=== PATIENT | male | born 1990 | race Two or more races ===

== ENCOUNTER 2018-08-04 17:01 | Inpatient (IN) ==
[2018-08-04 19:27] LABS: ABG Base Excess 5.2 MMOL/L (-2.5-2.5); ABG Oxygen Saturation 94.7 % (95-100); ABG PCO2 50.2 MM HG (35-48); ABG PH 7.402 (7.35-7.45); ABG PO2 72.3 MM HG (80-95); ABG TCO2 27.3 MMOL/L (23-27); Allen Test Positive
[2018-08-04 20:05] LABS: PT Patient Result 11.2 SECS
[2018-08-04 20:08] LABS: Albumin 3.2 G/DL (3.4-5.0); Basophils % 0.3 % (0.0-0.8); Bilirubin,Total 1.1 MG/DL (0.2-1.0); Calcium 8.8 MG/DL (8.5-10.1); Eosinophils # 0.1 10*3/uL (0.0-0.87); Hematocrit 42.4 VOL% (42.0-52.0); Hemoglobin 12.6 GM/DL (14.0-18.0); Immature Granulocytes % 0.4 %; Immature Granulocytes Absolute 0.04 #; Lymphocytes # 2.2 10*3/uL (1.4-4.0); Lymphocytes % 20.8 % (21.2-54.2); Mean Corpuscular HGB Conc 29.7 GM/DL (32-36); Mean Corpuscular Hemoglobin 22 PG (27-34); Mean Corpuscular Volume 75.4 FL (87-102); Mean Platelet Volume 11.6 FL (9.6-12.0); Monocytes # 1.3 10*3/uL (0.11-0.8); Monocytes % 12.1 % (1.7-12.7); Neutrophils % 65.4 % (38.7-73.9); Osmolality,Calculated 273.7 MOS/KG (273-304); Platelet Count 309 T/CUMM (130-400); Red Blood Count 5.62 MC/CUMM (3.8-5.5); Red Cell Distribution Width 19.4 % (9.3-17.3); White Blood Count 10.7 T/CUMM (4-12)
[2018-08-04 20:11] LABS: Apearance,Urine CLEAR (Clear); Bilirubin,Urine Negative (Negative); Blood, Urine Negative (Negative); Glucose,Urine (UA) Negative (Negative); Ketones,Urine Negative (Negative); Mucus,Urine Occasional /LPF (Occasional); Nitrite,Urine Negative (Negative); Protein,Urine 30 MG/DL; RBC,Urine <1 /HPF (0-4); Squamous Epithelial Cell,Urine Occasional /HPF (0-10); Urine Color Yellow (Yellow); WBC,Urine 1 /HPF (0-6)
[2018-08-04] MEDS ORDERED: FUROSEMIDE 40 MG/4 ML VIAL IV STA (21:51)
[2018-08-04] MEDS ORDERED: FUROSEMIDE 40 MG/4 ML VIAL ONE (21:52)
[2018-08-04] MEDS ORDERED: DOCUSATE SODIUM 100 MG CAPSULE PO PRN (22:58)
[2018-08-04] MEDS ORDERED: ONDANSETRON 4 MG/2 ML VIAL IV PRN (22:58)
[2018-08-04] MEDS ORDERED: ACETAMINOPHEN 325 MG TABLET PO PRN (22:58)
[2018-08-04] MEDS ORDERED: ALBUTEROL 2.5 MG/3 ML NEB RESP TX PRN (23:03)
[2018-08-05] MEDS: ALBUTEROL/IPRATROPIUM 3 ML NEB RESP TX SCH ×4 (00:03→19:14)
[2018-08-05] MEDS: cefTRIAXone 1,000 MG in SYRINGE 1 EACH IV SCH ×2 (00:25→20:39)
[2018-08-05] MEDS: guaiFENesin/DM ER 600-30 MG TABLET PO SCH ×2 (00:26→08:46)
[2018-08-05] MEDS: AZITHROMYCIN INJ 500 MG in SODIUM CHLORIDE 0.9% 250 ML IV SCH ×2 (00:31→16:02)
[2018-08-05] MEDS: ENOXAPARIN 40 MG/0.4 ML SYRINGE SUBCUT SCH ×2 (00:32→20:40)
[2018-08-05 17:16] LABS: Risk Ratio 2.35
[2018-08-06] MEDS: ALBUTEROL/IPRATROPIUM 3 ML NEB RESP TX SCH ×4 (01:58→19:14)
[2018-08-06 04:38] LABS: Basophils % 0.3 % (0.0-0.8); Eosinophils # 0.2 10*3/uL (0.0-0.87); Eosinophils % 1.2 % (0.00-10.9); Hemoglobin 12.4 GM/DL (14.0-18.0); Immature Granulocytes % 0.8 %; Lymphocytes # 3.4 10*3/uL (1.4-4.0); Lymphocytes % 27.8 % (21.2-54.2); Mean Corpuscular HGB Conc 29.6 GM/DL (32-36); Mean Corpuscular Hemoglobin 23 PG (27-34); Mean Corpuscular Volume 76.9 FL (87-102); Mean Platelet Volume 11.5 FL (9.6-12.0); Monocytes # 1.5 10*3/uL (0.11-0.8); Monocytes % 12.6 % (1.7-12.7); NRBC # 0.03 10*3/uL; Neutrophils % 57.3 % (38.7-73.9); Platelet Count 308 T/CUMM (130-400); Red Blood Count 5.45 MC/CUMM (3.8-5.5); Red Cell Distribution Width 19.7 % (9.3-17.3); White Blood Count 12.2 T/CUMM (4-12)
[2018-08-06 04:40] LABS: Hematocrit 41.9 VOL% (42.0-52.0)
[2018-08-06] MEDS: AZITHROMYCIN 250 MG TABLET PO SCH (09:10)
[2018-08-06] MEDS: ENOXAPARIN 40 MG/0.4 ML SYRINGE SUBCUT SCH (20:31)
[2018-08-06] MEDS: cefTRIAXone 1,000 MG in SYRINGE 1 EACH IV SCH (20:32)
[2018-08-07] MEDS: ALBUTEROL/IPRATROPIUM 3 ML NEB RESP TX SCH ×4 (00:15→19:52)
[2018-08-07 06:35] LABS: Basophils % 0.2 % (0.0-0.8); Eosinophils # 0.3 10*3/uL (0.0-0.87); Eosinophils % 2.9 % (0.00-10.9); Hemoglobin 12.1 GM/DL (14.0-18.0); Immature Granulocytes Absolute 0.12 #; Lymphocytes # 3.1 10*3/uL (1.4-4.0); Lymphocytes % 26.4 % (21.2-54.2); Mean Corpuscular HGB Conc 29.4 GM/DL (32-36); Mean Corpuscular Hemoglobin 23 PG (27-34); Mean Platelet Volume 11.1 FL (9.6-12.0); Monocytes % 8.7 % (1.7-12.7); Neutrophils # 7.1 10*3/uL (1.4-7.4); Neutrophils % 60.8 % (38.7-73.9); Platelet Count 297 T/CUMM (130-400); Red Blood Count 5.34 MC/CUMM (3.8-5.5); Red Cell Distribution Width 19.1 % (9.3-17.3); White Blood Count 11.6 T/CUMM (4-12)
[2018-08-07 06:36] LABS: Hematocrit 41.1 VOL% (42.0-52.0)
[2018-08-07] MEDS: AZITHROMYCIN 250 MG TABLET PO SCH (10:08)
[2018-08-07] MEDS: LEVOFLOXACIN INJ 750 MG in PREMIX 1 EACH IV SCH (15:37)
[2018-08-07] MEDS: PIPERACILLIN/TAZOBACTAM 3,375 MG in SODIUM CHLORIDE 0.9% 100 ML IV SCH ×2 (17:05→23:19)
[2018-08-07] MEDS: ENOXAPARIN 40 MG/0.4 ML SYRINGE SUBCUT SCH (21:03)
[2018-08-08] MEDS: ALBUTEROL/IPRATROPIUM 3 ML NEB RESP TX SCH ×3 (00:21→13:10)
[2018-08-08 06:20] LABS: Basophils # 0.1 10*3/uL (0.0-0.2); Basophils % 0.4 % (0.0-0.8); Eosinophils # 0.5 10*3/uL (0.0-0.87); Eosinophils % 4.1 % (0.00-10.9); Immature Granulocytes % 2.1 %; Immature Granulocytes Absolute 0.24 #; Lymphocytes # 2.7 10*3/uL (1.4-4.0); Lymphocytes % 23.5 % (21.2-54.2); Mean Corpuscular HGB Conc 29.6 GM/DL (32-36); Mean Corpuscular Hemoglobin 23 PG (27-34); Mean Corpuscular Volume 77.5 FL (87-102); Monocytes % 8.5 % (1.7-12.7); NRBC # 0.03 10*3/uL; Neutrophils % 61.4 % (38.7-73.9); Platelet Count 206 T/CUMM (130-400); Red Blood Count 5.46 MC/CUMM (3.8-5.5); Red Cell Distribution Width 19.8 % (9.3-17.3); White Blood Count 11.3 T/CUMM (4-12)
[2018-08-08 06:24] LABS: Hemoglobin 12.5 GM/DL (14.0-18.0)
[2018-08-08 06:37] LABS: Band Neutrophils 1 % (0-10); Eosinophils 3 % (0-10); Lymphocytes 21 % (20-55); Segmented Neutrophils 68 % (50-85); Total Cells Counted 100
[2018-08-08 06:38] LABS: Hypochromasia 1+; Microcytosis 1+; Platelet Estimate Normal
[2018-08-08] MEDS: PIPERACILLIN/TAZOBACTAM 3,375 MG in SODIUM CHLORIDE 0.9% 100 ML IV SCH (08:48)
[2018-08-08 11:58] VITALS: BP 104/50
[2018-08-08] MEDS: LEVOFLOXACIN INJ 750 MG in PREMIX 1 EACH IV SCH (12:38)
== END 2018-08-08 15:09 | disposition home or self-care (01) | DRG 194 ==
LOC: N.ED 17:01 → SUATTDRO 21:58 → N.2E 21:58 → N.EDINP 22:21 → N.ED 23:29 → N.2E 08-06 08:38
PROVIDERS: ADMIT Internal Medicine; ATTEND Internal Medicine

== ENCOUNTER 2019-08-15 16:13 | Inpatient (IN) ==
[2019-08-15] MEDS ORDERED: FUROSEMIDE 40 MG/4 ML VIAL IV STA (16:46)
[2019-08-15] MEDS ORDERED: AZITHROMYCIN INJ 500 MG in SODIUM CHLORIDE 0.9% 250 ML IV STA (16:46)
[2019-08-15] MEDS ORDERED: methylPREDNISolone SOD SUC 125 MG/2 ML VIAL IV STA (16:46)
[2019-08-15] MEDS ORDERED: cefTRIAXone 1,000 MG in SODIUM CHLORIDE 0.9% 100 ML IV STA (16:46)
[2019-08-15] MEDS ORDERED: ONDANSETRON 4 MG/2 ML VIAL IV STA (16:46)
[2019-08-15] MEDS ORDERED: ALBUTEROL NEB SOLN 5 MG/ML 20 ML/BOTTLE CONT NEB SCH (17:00)
[2019-08-15 17:20] LABS: ABG Base Excess 7.4 MMOL/L (-2.5-2.5); ABG Oxygen Saturation 89.1 % (95-100); ABG PCO2 54.5 MM HG (35-48); ABG PH 7.403 (7.35-7.45); ABG PO2 54.3 MM HG (80-95); ABG TCO2 29.9 MMOL/L (23-27); Allen Test Positive; Pt O2 Delivery Device Room Air
[2019-08-15 18:00] LABS: Partial Thromboplastin Time 32.7 SECS (20.8-36.0)
[2019-08-15 18:10] LABS: Troponin I < 0.015 NG/ML (0.00-0.045)
[2019-08-15 18:13] LABS: Basophils % 0.3 % (0.0-0.8); Eosinophils # 0.1 10*3/uL (0.0-0.87); Eosinophils % 1.1 % (0.00-10.9); Hematocrit 45.4 VOL% (42.0-52.0); Immature Granulocytes % 1.1 %; Lymphocytes # 3.4 10*3/uL (1.4-4.0); Lymphocytes % 38.1 % (21.2-54.2); Mean Corpuscular HGB Conc 29.1 GM/DL (32-36); Mean Corpuscular Volume 74.8 FL (87-102); Monocytes % 16.7 % (1.7-12.7); Neutrophils % 42.7 % (38.7-73.9); Platelet Count 237 T/CUMM (130-400); Red Blood Count 6.07 MC/CUMM (3.8-5.5); Red Cell Distribution Width 20.4 % (9.3-17.3); White Blood Count 8.8 T/CUMM (4-12)
[2019-08-15 18:14] LABS: Alanine Aminotransferase 48 U/L (16-61); Albumin 3.2 G/DL (3.4-5.0); Alkaline Phosphatase 61 U/L (45-117); Aspartate Amino Transferase 41 U/L (0-37); Bilirubin,Total < 0.39 MG/DL (0.2-1.0); Blood Urea Nitrogen 10 MG/DL (7-18); Calcium 8.4 MG/DL (8.5-10.1); Estimated Glom Filtration Rate 240 ML/MIN; Glucose 92 MG/DL (74-106); Osmolality,Calculated 268.1 MOS/KG (273-304); Total Protein 8.1 G/DL (6.4-8.3)
[2019-08-15 18:15] LABS: Hemoglobin 13.2 GM/DL (14.0-18.0)
[2019-08-15 18:31] LABS: Anisocytosis 1+; Band Neutrophils 4 % (0-10); Eosinophils 1 % (0-10); Lymphocytes 26 % (20-55); Metamyelocytes 2 %; Microcytosis 1+; Platelet Estimate Normal; Reactive Lymphocytes Slight; Segmented Neutrophils 50 % (50-85); Total Cells Counted 100
[2019-08-15 18:42] LABS: Apearance,Urine Slightly Hazy (Clear); Bilirubin,Urine Negative (Negative); Blood, Urine Negative (Negative); Glucose,Urine (UA) Negative (Negative); Ketones,Urine Negative (Negative); Mucus,Urine Occasional /LPF (Occasional); Nitrite,Urine Negative (Negative); Protein,Urine 100 MG/DL; RBC,Urine 3 /HPF (0-4); Urine Color Amber (Yellow); Urine Specific Gravity 1.028 (1.001-1.035); WBC,Urine 1 /HPF (0-6)
[2019-08-15 18:57] LABS: Barbiturates Screen,Urine Negative (Negative); Benzodiazepines Screen,Urine Negative (Negative); Cannabinoid Screen,Urine Negative (Negative); Opiate Screen,Urine Negative (Negative); Phencyclidine Screen,Urine Negative (Negative)
[2019-08-15] MEDS ORDERED: ONDANSETRON 4 MG/2 ML VIAL IV PRN (19:51)
[2019-08-15] MEDS ORDERED: DEXTROSE 50% 25 GM/50 ML SYRINGE IV PRN (20:02)
[2019-08-15] MEDS ORDERED: MAGNESIUM SULF RIDER 4 GM in PREMIX 1 EACH IV PRN (20:02)
[2019-08-15] MEDS ORDERED: MAGNESIUM SULF RIDER 2 GM in PREMIX 1 EACH IV PRN (20:02)
[2019-08-15] MEDS ORDERED: GLUCAGON 1 MG VIAL IM PRN (20:02)
[2019-08-15 21:08] LABS: Thyroid Stimulating Hormone 0.514 uIU/ml (0.358-3.74)
[2019-08-15] MEDS: POTASSIUM CHLORIDE 20 MEQ TABLET PO PRN (23:08)
[2019-08-15] MEDS: carvediloL 3.125 MG TABLET PO SCH (23:08)
[2019-08-15] MEDS: ENOXAPARIN 40 MG/0.4 ML SYRINGE SUBCUT SCH (23:08)
[2019-08-15] MEDS: OSELTAMIVIR 75 MG CAPSULE PO SCH ×2 (23:08→23:36)
[2019-08-15] MEDS: INSULIN REGULAR 100 UNIT/ML SUBCUT SCH (23:09)
[2019-08-16] MEDS: ALBUTEROL 2.5 MG/3 ML NEB RESP TX SCH ×4 (00:56→21:23)
[2019-08-16 02:33] LABS: Immature Granulocytes % 1.7 %; Immature Granulocytes Absolute 0.11 #; Mean Corpuscular HGB Conc 27.7 GM/DL (32-36); Mean Platelet Volume 10.4 FL (9.6-12.0)
[2019-08-16 02:47] LABS: Basophils % 0.5 % (0.0-0.8); Eosinophils % 0.2 % (0.00-10.9); Lymphocytes % 14.7 % (21.2-54.2); Mean Corpuscular Volume 77.9 FL (87-102); Monocytes % 7.6 % (1.7-12.7); NRBC # 0.02 10*3/uL; Neutrophils % 75.3 % (38.7-73.9); Platelet Count 284 T/CUMM (130-400); Red Blood Count 6.16 MC/CUMM (3.8-5.5); Red Cell Distribution Width 20.9 % (9.3-17.3); White Blood Count 6.6 T/CUMM (4-12)
[2019-08-16 02:48] LABS: Hemoglobin 13.3 GM/DL (14.0-18.0)
[2019-08-16 03:08] LABS: Alanine Aminotransferase 57 U/L (16-61); Albumin 3.3 G/DL (3.4-5.0); Alkaline Phosphatase 65 U/L (45-117); Aspartate Amino Transferase 48 U/L (0-37); Bilirubin,Total < 0.39 MG/DL (0.2-1.0); Blood Urea Nitrogen 10 MG/DL (7-18); Calcium 8.3 MG/DL (8.5-10.1); Estimated Glom Filtration Rate 240 ML/MIN; Glucose 154 MG/DL (74-106); HDL Cholesterol 51 MG/DL (40-60); Risk Ratio 2.69; Total Protein 7.8 G/DL (6.4-8.3); Triglycerides 59 MG/DL (2-150); VLDL CHOLESTEROL 11.8 MG/DL
[2019-08-16 03:54] LABS: Anisocytosis 1+; Ovalocytes 1+; Platelet Estimate Normal
[2019-08-16] MEDS ORDERED: PANTOPRAZOLE 40 MG TABLET PO SCH (09:00)
[2019-08-16 09:22] LABS: ABG Base Excess 5.8 MMOL/L (-2.5-2.5); ABG HCO3 29.4 MMOL/L (20-26); ABG Oxygen Saturation 86.9 % (95-100); ABG PH 7.233 (7.35-7.45); ABG PO2 56.6 MM HG (80-95); ABG TCO2 33.8 MMOL/L (23-27); Allen Test Positive; Pt O2 Delivery Device Other
[2019-08-16 09:26] LABS: ABG PCO2 88.6 MM HG (35-48)
[2019-08-16] MEDS: carvediloL 3.125 MG TABLET PO SCH ×2 (09:56→18:30)
[2019-08-16] MEDS: INSULIN REGULAR 100 UNIT/ML SUBCUT SCH ×4 (09:57→21:45)
[2019-08-16] MEDS: ASPIRIN CHEW 81 MG TABLET PO SCH (09:57)
[2019-08-16] MEDS: OSELTAMIVIR 75 MG CAPSULE PO SCH ×2 (09:57→21:45)
[2019-08-16] MEDS: cefTRIAXone 1,000 MG in SYRINGE 1 EACH IV SCH (09:59)
[2019-08-16] MEDS: FUROSEMIDE 40 MG/4 ML VIAL IV SCH ×2 (10:04→16:15)
[2019-08-16] MEDS ORDERED: FUROSEMIDE 40 MG/4 ML VIAL IV ONE (14:20)
[2019-08-16] MEDS: AZITHROMYCIN INJ 500 MG in SODIUM CHLORIDE 0.9% 250 ML IV SCH (14:35)
[2019-08-16] MEDS: methylPREDNISolone SOD SUC 40 MG/1 ML VIAL IV SCH (16:30)
[2019-08-16 16:36] LABS: ABG Base Excess 6.9 MMOL/L (-2.5-2.5); ABG HCO3 39.8 MMOL/L (20-26); ABG Oxygen Saturation 93.1 % (95-100); ABG TCO2 43.3 MMOL/L (23-27); Pt O2 Delivery Device BIPAP
[2019-08-16 16:41] LABS: ABG PH 7.156 (7.35-7.45)
[2019-08-16 16:42] LABS: ABG PCO2 115.2 MM HG (35-48)
[2019-08-16 18:26] LABS: Calcium 8.1 MG/DL (8.5-10.1); Osmolality,Calculated 276.7 MOS/KG (273-304)
[2019-08-16] MEDS: ENOXAPARIN 40 MG/0.4 ML SYRINGE SUBCUT SCH (21:45)
[2019-08-17] MEDS ORDERED: ETOMIDATE 20 MG/10 ML VIAL IV ONE ×2 (00:03→00:09)
[2019-08-17] MEDS ORDERED: VECURONIUM 10 MG VIAL IV ONE (00:09)
[2019-08-17 01:29] LABS: ABG Base Excess 5.8 MMOL/L (-2.5-2.5); ABG HCO3 45.3 MMOL/L (20-26); ABG Oxygen Saturation 90.6 % (95-100); ABG PO2 80.4 MM HG (80-95); ABG TCO2 52.1 MMOL/L (23-27)
[2019-08-17 01:30] LABS: ABG PCO2 221.5 MM HG (35-48); ABG PH 6.929 (7.35-7.45)
[2019-08-17 01:33] LABS: ABG Base Excess 7.2 MMOL/L (-2.5-2.5); ABG HCO3 39.5 MMOL/L (20-26); ABG Oxygen Saturation 97.7 % (95-100); ABG TCO2 42.8 MMOL/L (23-27); Allen Test Positive; Pt O2 Delivery Device Ventilator
[2019-08-17 01:36] LABS: ABG PCO2 108.7 MM HG (35-48); ABG PH 7.178 (7.35-7.45)
[2019-08-17 01:43] LABS: Apearance,Urine CLEAR (Clear); Bilirubin,Urine Negative (Negative); Blood, Urine Moderate mg/dL (Negative); Glucose,Urine (UA) Negative (Negative); Hyaline Casts,Urine 3 /LPF (0-3); Ketones,Urine Negative (Negative); Mucus,Urine Occasional /LPF (Occasional); Nitrite,Urine Negative (Negative); Protein,Urine 100 MG/DL; RBC,Urine 163 /HPF (0-4); Squamous Epithelial Cell,Urine Occasional /HPF (0-10); Urine Color Yellow (Yellow); Urine Specific Gravity 1.023 (1.001-1.035); WBC,Urine 1 /HPF (0-6)
[2019-08-17] MEDS: methylPREDNISolone SOD SUC 40 MG/1 ML VIAL IV SCH ×2 (03:35→15:36)
[2019-08-17 05:45] LABS: Albumin 2.8 G/DL (3.4-5.0); Bilirubin,Total 0.9 MG/DL (0.2-1.0); Calcium 8.5 MG/DL (8.5-10.1); Osmolality,Calculated 274.8 MOS/KG (273-304); Total Protein 7.2 G/DL (6.4-8.3)
[2019-08-17 05:59] LABS: Basophils % 0.1 % (0.0-0.8); Hematocrit 45.4 VOL% (42.0-52.0); Hemoglobin 12.3 GM/DL (14.0-18.0); Immature Granulocytes % 0.8 %; Immature Granulocytes Absolute 0.06 #; Lymphocytes # 1.4 10*3/uL (1.4-4.0); Mean Corpuscular HGB Conc 27.1 GM/DL (32-36); Mean Corpuscular Volume 80.9 FL (87-102); Mean Platelet Volume 10.7 FL (9.6-12.0); Monocytes % 14.3 % (1.7-12.7); NRBC # 0.05 10*3/uL; Neutrophils % 66.8 % (38.7-73.9); Platelet Count 272 T/CUMM (130-400); Red Blood Count 5.61 MC/CUMM (3.8-5.5); Red Cell Distribution Width 20.1 % (9.3-17.3); White Blood Count 7.5 T/CUMM (4-12)
[2019-08-17 06:11] LABS: Anisocytosis 1+; Hypochromasia 1+; Microcytosis 1+; Polychromasia Slight; Target Cells Slight
[2019-08-17 06:12] LABS: Platelet Estimate Normal
[2019-08-17 06:53] LABS: ABG HCO3 34.8 MMOL/L (20-26); ABG Oxygen Saturation 99.6 % (95-100); ABG PH 7.392 (7.35-7.45); ABG TCO2 34.2 MMOL/L (23-27); Allen Test Positive; Pt O2 Delivery Device Ventilator
[2019-08-17] MEDS: ALBUTEROL 2.5 MG/3 ML NEB RESP TX SCH ×4 (07:45→20:00)
[2019-08-17] MEDS: INSULIN REGULAR 100 UNIT/ML SUBCUT SCH ×4 (08:08→20:51)
[2019-08-17] MEDS: cefTRIAXone 1,000 MG in SYRINGE 1 EACH IV SCH (08:37)
[2019-08-17] MEDS: carvediloL 3.125 MG TABLET PO SCH ×2 (08:37→18:18)
[2019-08-17] MEDS: OSELTAMIVIR 75 MG CAPSULE PO SCH ×2 (08:37→21:11)
[2019-08-17] MEDS: ASPIRIN CHEW 81 MG TABLET PO SCH (08:37)
[2019-08-17] MEDS: FUROSEMIDE 40 MG/4 ML VIAL IV SCH ×2 (08:38→15:38)
[2019-08-17] MEDS: PANTOPRAZOLE 40 MG VIAL IV SCH (08:56)
[2019-08-17] MEDS: AZITHROMYCIN INJ 500 MG in SODIUM CHLORIDE 0.9% 250 ML IV SCH (15:35)
[2019-08-17] MEDS: ENOXAPARIN 60 MG/0.6 ML SYRINGE SUBCUT SCH (15:35)
[2019-08-17] MEDS: OSELTAMIVIR 6 MG/ML 60 ML/BOTTLE PO SCH (22:20)
[2019-08-18] MEDS: ALBUTEROL 2.5 MG/3 ML NEB RESP TX SCH ×4 (01:00→20:30)
[2019-08-18] MEDS: methylPREDNISolone SOD SUC 40 MG/1 ML VIAL IV SCH ×2 (02:03→15:17)
[2019-08-18 02:50] LABS: ABG Base Excess 14.9 MMOL/L (-2.5-2.5); ABG HCO3 38.9 MMOL/L (20-26); ABG Oxygen Saturation 95.8 % (95-100); ABG PCO2 61.3 MM HG (35-48); ABG PH 7.447 (7.35-7.45); ABG PO2 75.8 MM HG (80-95); ABG TCO2 37.1 MMOL/L (23-27); Allen Test Positive; Pt O2 Delivery Device Ventilator
[2019-08-18 06:45] LABS: Albumin 2.7 G/DL (3.4-5.0); Bilirubin,Total 0.8 MG/DL (0.2-1.0); Calcium 8.8 MG/DL (8.5-10.1); Osmolality,Calculated 277.7 MOS/KG (273-304); Total Protein 7.3 G/DL (6.4-8.3)
[2019-08-18 06:57] LABS: Basophils % 0.1 % (0.0-0.8); Hematocrit 45.3 VOL% (42.0-52.0); Hemoglobin 12.7 GM/DL (14.0-18.0); Immature Granulocytes % 0.9 %; Immature Granulocytes Absolute 0.07 #; Lymphocytes # 1.3 10*3/uL (1.4-4.0); Mean Corpuscular Volume 76.8 FL (87-102); Mean Platelet Volume 10.7 FL (9.6-12.0); Monocytes % 10.7 % (1.7-12.7); NRBC # 0.03 10*3/uL; Neutrophils % 70.3 % (38.7-73.9); Platelet Count 281 T/CUMM (130-400); Red Cell Distribution Width 19.9 % (9.3-17.3); White Blood Count 7.4 T/CUMM (4-12)
[2019-08-18 07:13] LABS: Band Neutrophils 3 % (0-10); Hypochromasia 1+; Lymphocytes 17 % (20-55); Microcytosis 1+; Nucleated Red Blood Cells 1 (0-5); Segmented Neutrophils 73 % (50-85); Total Cells Counted 100
[2019-08-18 07:14] LABS: Platelet Estimate Normal
[2019-08-18] MEDS: ASPIRIN CHEW 81 MG TABLET PO SCH (08:55)
[2019-08-18] MEDS: carvediloL 3.125 MG TABLET PO SCH ×2 (08:55→18:50)
[2019-08-18] MEDS: PANTOPRAZOLE 40 MG VIAL IV SCH (08:56)
[2019-08-18] MEDS: cefTRIAXone 1,000 MG in SYRINGE 1 EACH IV SCH (08:56)
[2019-08-18] MEDS: INSULIN REGULAR 100 UNIT/ML SUBCUT SCH ×4 (09:56→20:50)
[2019-08-18] MEDS: FUROSEMIDE 40 MG/4 ML VIAL IV SCH ×2 (09:57→18:50)
[2019-08-18] MEDS: OSELTAMIVIR 75 MG CAPSULE PO SCH ×2 (09:58→21:02)
[2019-08-18] MEDS: OSELTAMIVIR 6 MG/ML 60 ML/BOTTLE PO SCH ×2 (09:59→21:02)
[2019-08-18] MEDS: ENOXAPARIN 60 MG/0.6 ML SYRINGE SUBCUT SCH (15:19)
[2019-08-18] MEDS: AZITHROMYCIN INJ 500 MG in SODIUM CHLORIDE 0.9% 250 ML IV SCH (15:19)
[2019-08-19] MEDS: ALBUTEROL 2.5 MG/3 ML NEB RESP TX SCH ×4 (00:10→20:31)
[2019-08-19] MEDS: methylPREDNISolone SOD SUC 40 MG/1 ML VIAL IV SCH ×2 (01:45→13:56)
[2019-08-19 04:49] LABS: ABG Base Excess 9.3 MMOL/L (-2.5-2.5); ABG HCO3 32.9 MMOL/L (20-26); ABG Oxygen Saturation 92.4 % (95-100); ABG PCO2 57.7 MM HG (35-48); ABG PH 7.408 (7.35-7.45); ABG TCO2 31.7 MMOL/L (23-27); Allen Test Positive; Pt O2 Delivery Device Ventilator
[2019-08-19 06:34] LABS: Calcium 8.6 MG/DL (8.5-10.1); Prealbumin 16.5 MG/DL (20-40)
[2019-08-19] MEDS: INSULIN REGULAR 100 UNIT/ML SUBCUT SCH ×4 (07:31→20:42)
[2019-08-19] MEDS: cefTRIAXone 1,000 MG in SYRINGE 1 EACH IV SCH (09:15)
[2019-08-19] MEDS: OSELTAMIVIR 6 MG/ML 60 ML/BOTTLE PO SCH ×2 (09:15→20:53)
[2019-08-19] MEDS: ASPIRIN CHEW 81 MG TABLET PO SCH (09:15)
[2019-08-19] MEDS: carvediloL 3.125 MG TABLET PO SCH ×2 (09:15→16:13)
[2019-08-19] MEDS: FUROSEMIDE 40 MG/4 ML VIAL IV SCH ×2 (09:15→16:13)
[2019-08-19] MEDS: PANTOPRAZOLE 40 MG VIAL IV SCH (09:15)
[2019-08-19] MEDS: OSELTAMIVIR 75 MG CAPSULE PO SCH ×2 (09:46→20:42)
[2019-08-19] MEDS: ENOXAPARIN 60 MG/0.6 ML SYRINGE SUBCUT SCH (13:54)
[2019-08-19] MEDS: AZITHROMYCIN INJ 500 MG in SODIUM CHLORIDE 0.9% 250 ML IV SCH (14:06)
[2019-08-20] MEDS: ALBUTEROL 2.5 MG/3 ML NEB RESP TX SCH ×4 (00:10→20:23)
[2019-08-20] MEDS: methylPREDNISolone SOD SUC 40 MG/1 ML VIAL IV SCH ×2 (02:42→14:04)
[2019-08-20 04:36] LABS: ABG Base Excess 6.1 MMOL/L (-2.5-2.5); ABG HCO3 29.7 MMOL/L (20-26); ABG Oxygen Saturation 91.1 % (95-100); ABG PCO2 56.5 MM HG (35-48); ABG PH 7.378 (7.35-7.45); ABG PO2 63.3 MM HG (80-95); ABG TCO2 28.8 MMOL/L (23-27); Allen Test Positive; Pt O2 Delivery Device Ventilator
[2019-08-20] MEDS: INSULIN REGULAR 100 UNIT/ML SUBCUT SCH ×4 (06:59→21:22)
[2019-08-20] MEDS: ASPIRIN CHEW 81 MG TABLET PO SCH (08:28)
[2019-08-20] MEDS: cefTRIAXone 1,000 MG in SYRINGE 1 EACH IV SCH (08:28)
[2019-08-20] MEDS: PANTOPRAZOLE 40 MG VIAL IV SCH (08:28)
[2019-08-20] MEDS: FUROSEMIDE 40 MG/4 ML VIAL IV SCH ×2 (08:28→16:13)
[2019-08-20] MEDS: carvediloL 3.125 MG TABLET PO SCH ×2 (08:28→16:13)
[2019-08-20] MEDS: OSELTAMIVIR 6 MG/ML 60 ML/BOTTLE PO SCH ×2 (08:37→21:18)
[2019-08-20] MEDS: MULTIVITAMIN LIQUID (CENTRUM) 60 ML BOTTLE PO SCH (09:07)
[2019-08-20 09:21] LABS: Calcium 8.7 MG/DL (8.5-10.1)
[2019-08-20 09:23] LABS: Basophils % 0.2 % (0.0-0.8); Hematocrit 45.6 VOL% (42.0-52.0); Hemoglobin 13.4 GM/DL (14.0-18.0); Immature Granulocytes % 0.9 %; Immature Granulocytes Absolute 0.08 #; Lymphocytes # 1.9 10*3/uL (1.4-4.0); Lymphocytes % 21.3 % (21.2-54.2); Mean Corpuscular HGB Conc 29.4 GM/DL (32-36); Mean Corpuscular Volume 73.8 FL (87-102); Mean Platelet Volume 10.6 FL (9.6-12.0); Monocytes % 11.2 % (1.7-12.7); Neutrophils % 66.4 % (38.7-73.9); Platelet Count 291 T/CUMM (130-400); Red Blood Count 6.18 MC/CUMM (3.8-5.5); Red Cell Distribution Width 20.1 % (9.3-17.3); White Blood Count 9.1 T/CUMM (4-12)
[2019-08-20 09:28] LABS: Band Neutrophils 9 % (0-10); Giant Platelets Few; Lymphocytes 17 % (20-55); Platelet Estimate Normal; Segmented Neutrophils 68 % (50-85); Smudge Cells Few; Total Cells Counted 100
[2019-08-20 09:29] LABS: Anisocytosis 1+
[2019-08-20] MEDS: POTASSIUM CHLORIDE 20 MEQ TABLET PO PRN (12:12)
[2019-08-20] MEDS: AZITHROMYCIN INJ 500 MG in SODIUM CHLORIDE 0.9% 250 ML IV SCH (14:05)
[2019-08-20] MEDS: ENOXAPARIN 60 MG/0.6 ML SYRINGE SUBCUT SCH (14:06)
[2019-08-21] MEDS: fentaNYL INJ 1,250 MCG in SODIUM CHLORIDE 0.9% 225 ML IV PRN ×5 (00:34→20:53)
[2019-08-21] MEDS: MIDAZOLAM 100 MG in SODIUM CHLORIDE 0.9% 80 ML IV PRN ×2 (00:36→17:50)
[2019-08-21] MEDS: ALBUTEROL 2.5 MG/3 ML NEB RESP TX SCH ×4 (01:14→19:55)
[2019-08-21] MEDS: methylPREDNISolone SOD SUC 40 MG/1 ML VIAL IV SCH ×2 (03:12→14:55)
[2019-08-21 04:19] LABS: Allen Test Positive; Pt O2 Delivery Device Ventilator
[2019-08-21 04:22] LABS: ABG HCO3 32.8 MMOL/L (20-26); ABG Oxygen Saturation 94.4 % (95-100); ABG PCO2 62.6 MM HG (35-48); ABG PH 7.337 (7.35-7.45); ABG PO2 77.2 MM HG (80-95); ABG TCO2 34.7 MMOL/L (23-27)
[2019-08-21 05:08] LABS: Basophils % 0.2 % (0.0-0.8); Eosinophils % 0.1 % (0.00-10.9); Immature Granulocytes % 0.8 %; Immature Granulocytes Absolute 0.11 #; Lymphocytes # 2.2 10*3/uL (1.4-4.0); Lymphocytes % 16.8 % (21.2-54.2); Mean Corpuscular HGB Conc 28.3 GM/DL (32-36); Mean Corpuscular Volume 76.2 FL (87-102); Mean Platelet Volume 10.3 FL (9.6-12.0); Monocytes % 11.7 % (1.7-12.7); Neutrophils % 70.4 % (38.7-73.9); Platelet Count 242 T/CUMM (130-400); White Blood Count 13.4 T/CUMM (4-12)
[2019-08-21 05:31] LABS: Calcium 8.7 MG/DL (8.5-10.1)
[2019-08-21 05:44] LABS: Hematocrit 48.1 VOL% (42.0-52.0); Hemoglobin 14.1 GM/DL (14.0-18.0)
[2019-08-21 05:49] LABS: Hypochromasia 1+; Platelet Estimate Adequate
[2019-08-21] MEDS: carvediloL 3.125 MG TABLET PO SCH ×2 (08:01→16:04)
[2019-08-21] MEDS: POTASSIUM CHLORIDE 20 MEQ TABLET PO PRN (08:01)
[2019-08-21] MEDS: INSULIN REGULAR 100 UNIT/ML SUBCUT SCH ×3 (08:02→17:24)
[2019-08-21] MEDS: ASPIRIN CHEW 81 MG TABLET PO SCH (08:02)
[2019-08-21] MEDS: cefTRIAXone 1,000 MG in SYRINGE 1 EACH IV SCH (08:02)
[2019-08-21] MEDS: PANTOPRAZOLE 40 MG VIAL IV SCH (08:02)
[2019-08-21] MEDS: FUROSEMIDE 40 MG/4 ML VIAL IV SCH ×2 (08:02→15:54)
[2019-08-21] MEDS: OSELTAMIVIR 6 MG/ML 60 ML/BOTTLE PO SCH (08:04)
[2019-08-21] MEDS: MULTIVITAMIN LIQUID (CENTRUM) 60 ML BOTTLE PO SCH (08:04)
[2019-08-21] MEDS: ENOXAPARIN 60 MG/0.6 ML SYRINGE SUBCUT SCH (14:55)
[2019-08-22] MEDS: ALBUTEROL 2.5 MG/3 ML NEB RESP TX SCH ×4 (00:24→20:04)
[2019-08-22] MEDS: INSULIN REGULAR 100 UNIT/ML SUBCUT SCH ×4 (01:12→19:04)
[2019-08-22] MEDS: methylPREDNISolone SOD SUC 40 MG/1 ML VIAL IV SCH ×2 (01:52→15:29)
[2019-08-22] MEDS: fentaNYL INJ 1,250 MCG in SODIUM CHLORIDE 0.9% 225 ML IV PRN ×4 (02:17→22:51)
[2019-08-22] MEDS: MIDAZOLAM 100 MG in SODIUM CHLORIDE 0.9% 80 ML IV PRN ×4 (02:18→22:30)
[2019-08-22 04:36] LABS: ABG Base Excess 6.1 MMOL/L (-2.5-2.5); ABG HCO3 29.6 MMOL/L (20-26); ABG Oxygen Saturation 86.3 % (95-100); ABG PCO2 58.9 MM HG (35-48); ABG PH 7.366 (7.35-7.45); ABG TCO2 29.2 MMOL/L (23-27); Allen Test Positive; Pt O2 Delivery Device Ventilator
[2019-08-22 04:44] LABS: Basophils % 0.2 % (0.0-0.8); Eosinophils % 0.2 % (0.00-10.9); Immature Granulocytes % 0.9 %; Immature Granulocytes Absolute 0.15 #; Lymphocytes # 1.6 10*3/uL (1.4-4.0); Lymphocytes % 9.7 % (21.2-54.2); Mean Corpuscular HGB Conc 28.3 GM/DL (32-36); Mean Platelet Volume 10.4 FL (9.6-12.0); Monocytes % 9.7 % (1.7-12.7); Neutrophils % 79.3 % (38.7-73.9); Platelet Count 247 T/CUMM (130-400); Red Blood Count 6.41 MC/CUMM (3.8-5.5); Red Cell Distribution Width 20.1 % (9.3-17.3); White Blood Count 16.5 T/CUMM (4-12)
[2019-08-22 05:26] LABS: Hematocrit 47.1 VOL% (42.0-52.0); Hemoglobin 13.9 GM/DL (14.0-18.0)
[2019-08-22] MEDS: ASPIRIN CHEW 81 MG TABLET PO SCH (09:09)
[2019-08-22] MEDS: carvediloL 3.125 MG TABLET PO SCH ×2 (09:09→18:16)
[2019-08-22] MEDS: MULTIVITAMIN LIQUID (CENTRUM) 60 ML BOTTLE PO SCH (09:10)
[2019-08-22] MEDS: FUROSEMIDE 40 MG/4 ML VIAL IV SCH ×2 (09:14→15:53)
[2019-08-22] MEDS: cefTRIAXone 1,000 MG in SYRINGE 1 EACH IV SCH (09:16)
[2019-08-22] MEDS: PANTOPRAZOLE 40 MG VIAL IV SCH (09:17)
[2019-08-22] MEDS: ENOXAPARIN 60 MG/0.6 ML SYRINGE SUBCUT SCH (15:28)
[2019-08-23] MEDS: INSULIN REGULAR 100 UNIT/ML SUBCUT SCH ×4 (00:10→18:54)
[2019-08-23] MEDS: methylPREDNISolone SOD SUC 40 MG/1 ML VIAL IV SCH ×2 (01:35→15:02)
[2019-08-23] MEDS: ALBUTEROL 2.5 MG/3 ML NEB RESP TX SCH ×4 (01:47→19:15)
[2019-08-23 04:11] LABS: ABG Base Excess 2.9 MMOL/L (-2.5-2.5); ABG HCO3 29.1 MMOL/L (20-26); ABG Oxygen Saturation 91.1 % (95-100); ABG PCO2 51.3 MM HG (35-48); ABG PH 7.372 (7.35-7.45); ABG TCO2 30.7 MMOL/L (23-27); Allen Test Positive; Pt O2 Delivery Device Ventilator
[2019-08-23] MEDS: fentaNYL INJ 1,250 MCG in SODIUM CHLORIDE 0.9% 225 ML IV PRN ×4 (04:23→19:39)
[2019-08-23 05:29] LABS: Basophils % 0.2 % (0.0-0.8); Eosinophils % 0.1 % (0.00-10.9); Hematocrit 44.8 VOL% (42.0-52.0); Immature Granulocytes % 1.2 %; Immature Granulocytes Absolute 0.23 #; Lymphocytes % 5.3 % (21.2-54.2); Mean Corpuscular Volume 74.8 FL (87-102); Neutrophils % 85.2 % (38.7-73.9); Platelet Count 213 T/CUMM (130-400); Red Blood Count 5.99 MC/CUMM (3.8-5.5); Red Cell Distribution Width 19.8 % (9.3-17.3); White Blood Count 19.2 T/CUMM (4-12)
[2019-08-23 05:55] LABS: Hypochromasia 1+; Platelet Estimate Adequate
[2019-08-23] MEDS: MIDAZOLAM 100 MG in SODIUM CHLORIDE 0.9% 80 ML IV PRN ×3 (05:58→18:11)
[2019-08-23] MEDS: PANTOPRAZOLE 40 MG VIAL IV SCH (09:34)
[2019-08-23] MEDS: FUROSEMIDE 40 MG/4 ML VIAL IV SCH ×2 (09:34→17:13)
[2019-08-23] MEDS: ASPIRIN CHEW 81 MG TABLET PO SCH (09:35)
[2019-08-23] MEDS: carvediloL 3.125 MG TABLET PO SCH ×2 (09:35→17:14)
[2019-08-23] MEDS: cefTRIAXone 1,000 MG in SYRINGE 1 EACH IV SCH (09:35)
[2019-08-23] MEDS: MULTIVITAMIN LIQUID (CENTRUM) 60 ML BOTTLE PO SCH (09:35)
[2019-08-23 10:54] LABS: Albumin 2.7 G/DL (3.4-5.0); Bilirubin,Total 1.2 MG/DL (0.2-1.0); Osmolality,Calculated 287.3 MOS/KG (273-304); Total Protein 8.2 G/DL (6.4-8.3)
[2019-08-23] MEDS: ENOXAPARIN 60 MG/0.6 ML SYRINGE SUBCUT SCH (15:02)
[2019-08-24] MEDS: fentaNYL INJ 1,250 MCG in SODIUM CHLORIDE 0.9% 225 ML IV PRN ×2 (00:23→06:05)
[2019-08-24] MEDS: MIDAZOLAM 100 MG in SODIUM CHLORIDE 0.9% 80 ML IV PRN ×4 (00:24→20:21)
[2019-08-24] MEDS: ALBUTEROL 2.5 MG/3 ML NEB RESP TX SCH ×4 (00:45→20:15)
[2019-08-24] MEDS: INSULIN REGULAR 100 UNIT/ML SUBCUT SCH ×4 (00:56→17:07)
[2019-08-24] MEDS: methylPREDNISolone SOD SUC 40 MG/1 ML VIAL IV SCH ×2 (03:00→15:16)
[2019-08-24 05:20] LABS: ABG Base Excess 5.7 MMOL/L (-2.5-2.5); ABG HCO3 29.3 MMOL/L (20-26); ABG Oxygen Saturation 86.1 % (95-100); ABG PCO2 62.4 MM HG (35-48); ABG PH 7.341 (7.35-7.45); ABG PO2 53.1 MM HG (80-95); ABG TCO2 29.8 MMOL/L (23-27)
[2019-08-24 06:28] LABS: Basophils % 0.2 % (0.0-0.8); Hemoglobin 12.7 GM/DL (14.0-18.0); Immature Granulocytes % 1.1 %; Immature Granulocytes Absolute 0.19 #; Lymphocytes % 5.7 % (21.2-54.2); Mean Corpuscular HGB Conc 28.9 GM/DL (32-36); Mean Corpuscular Volume 75.5 FL (87-102); Monocytes % 8.8 % (1.7-12.7); Neutrophils % 84.2 % (38.7-73.9); Platelet Count 201 T/CUMM (130-400); Red Blood Count 5.83 MC/CUMM (3.8-5.5); Red Cell Distribution Width 19.9 % (9.3-17.3); White Blood Count 17.1 T/CUMM (4-12)
[2019-08-24 06:31] LABS: Calcium 9.3 MG/DL (8.5-10.1); Osmolality,Calculated 287.3 MOS/KG (273-304)
[2019-08-24 06:37] LABS: Hypochromasia 1+; Microcytosis 1+; Platelet Estimate Normal
[2019-08-24] MEDS: cefTRIAXone 1,000 MG in SYRINGE 1 EACH IV SCH (09:08)
[2019-08-24] MEDS: carvediloL 3.125 MG TABLET PO SCH ×2 (09:09→17:15)
[2019-08-24] MEDS: PANTOPRAZOLE 40 MG VIAL IV SCH (09:09)
[2019-08-24] MEDS: FUROSEMIDE 40 MG/4 ML VIAL IV SCH ×3 (09:09→22:12)
[2019-08-24] MEDS: MULTIVITAMIN LIQUID (CENTRUM) 60 ML BOTTLE PO SCH (09:10)
[2019-08-24] MEDS: ASPIRIN CHEW 81 MG TABLET PO SCH (09:10)
[2019-08-24] MEDS: ENOXAPARIN 60 MG/0.6 ML SYRINGE SUBCUT SCH (13:46)
[2019-08-24] MEDS: METOCLOPRAMIDE 10 MG/2 ML VIAL IV SCH ×2 (17:15→23:59)
[2019-08-24] MEDS ORDERED: FUROSEMIDE 20 MG/2 ML VIAL ONE (21:19)
[2019-08-25] MEDS: INSULIN REGULAR 100 UNIT/ML SUBCUT SCH ×4 (00:03→18:29)
[2019-08-25] MEDS: ALBUTEROL 2.5 MG/3 ML NEB RESP TX SCH ×4 (01:49→19:20)
[2019-08-25] MEDS: MIDAZOLAM 100 MG in SODIUM CHLORIDE 0.9% 80 ML IV PRN ×4 (01:55→21:53)
[2019-08-25] MEDS: methylPREDNISolone SOD SUC 40 MG/1 ML VIAL IV SCH ×2 (03:48→14:23)
[2019-08-25 04:31] LABS: Allen Test Positive; Pt O2 Delivery Device Ventilator
[2019-08-25 04:32] LABS: ABG Base Excess 6.5 MMOL/L (-2.5-2.5); ABG HCO3 30.1 MMOL/L (20-26); ABG Oxygen Saturation 89.8 % (95-100); ABG PCO2 54.3 MM HG (35-48); ABG PH 7.395 (7.35-7.45); ABG PO2 56.9 MM HG (80-95); ABG TCO2 28.8 MMOL/L (23-27)
[2019-08-25 05:01] LABS: Basophils % 0.1 % (0.0-0.8); Hematocrit 46.4 VOL% (42.0-52.0); Immature Granulocytes Absolute 0.13 #; Lymphocytes # 2.1 10*3/uL (1.4-4.0); Lymphocytes % 15.3 % (21.2-54.2); Mean Corpuscular HGB Conc 28.7 GM/DL (32-36); Mean Corpuscular Volume 75.2 FL (87-102); Monocytes % 15.7 % (1.7-12.7); Neutrophils % 67.9 % (38.7-73.9); Platelet Count 246 T/CUMM (130-400); Red Blood Count 6.17 MC/CUMM (3.8-5.5); Red Cell Distribution Width 20.1 % (9.3-17.3); White Blood Count 13.6 T/CUMM (4-12)
[2019-08-25] MEDS: METOCLOPRAMIDE 10 MG/2 ML VIAL IV SCH ×4 (05:21→23:44)
[2019-08-25] MEDS: FUROSEMIDE 40 MG/4 ML VIAL IV SCH ×3 (05:21→21:20)
[2019-08-25 05:27] LABS: Calcium 9.4 MG/DL (8.5-10.1); Osmolality,Calculated 299.6 MOS/KG (273-304)
[2019-08-25 05:43] LABS: Hemoglobin 13.5 GM/DL (14.0-18.0)
[2019-08-25 05:56] LABS: Hypochromasia 1+; Lymphocytes 25 % (20-55); Microcytosis 1+; Ovalocytes Slight; Platelet Estimate Adequate; Segmented Neutrophils 60 % (50-85); Total Cells Counted 100
[2019-08-25] MEDS: cefTRIAXone 1,000 MG in SYRINGE 1 EACH IV SCH (07:51)
[2019-08-25] MEDS: ASPIRIN CHEW 81 MG TABLET PO SCH (08:00)
[2019-08-25] MEDS: carvediloL 3.125 MG TABLET PO SCH ×2 (08:00→18:29)
[2019-08-25] MEDS: PANTOPRAZOLE 40 MG VIAL IV SCH (08:12)
[2019-08-25] MEDS: MULTIVITAMIN LIQUID (CENTRUM) 60 ML BOTTLE PO SCH (10:46)
[2019-08-25] MEDS: POTASSIUM CHLORIDE 20 MEQ/15 ML UDCUP PER TUBE SCH ×3 (10:50→18:29)
[2019-08-25] MEDS: ENOXAPARIN 60 MG/0.6 ML SYRINGE SUBCUT SCH (14:24)
[2019-08-26] MEDS: ALBUTEROL 2.5 MG/3 ML NEB RESP TX SCH ×4 (00:12→19:24)
[2019-08-26] MEDS ORDERED: ACETAMINOPHEN 325 MG/10.15 ML UDCUP PO ONE (00:30)
[2019-08-26] MEDS: INSULIN REGULAR 100 UNIT/ML SUBCUT SCH ×4 (00:44→18:18)
[2019-08-26 01:31] LABS: Calcium 9.1 MG/DL (8.5-10.1); Osmolality,Calculated 305.4 MOS/KG (273-304)
[2019-08-26] MEDS: methylPREDNISolone SOD SUC 40 MG/1 ML VIAL IV SCH ×2 (02:20→14:29)
[2019-08-26] MEDS: POTASSIUM CHLORIDE 20 MEQ TABLET PO PRN ×2 (02:28→06:14)
[2019-08-26 04:04] LABS: ABG Base Excess 5.7 MMOL/L (-2.5-2.5); ABG HCO3 29.5 MMOL/L (20-26); ABG Oxygen Saturation 95.1 % (95-100); ABG PH 7.437 (7.35-7.45); ABG TCO2 26.2 MMOL/L (23-27); Allen Test Positive; Pt O2 Delivery Device Ventilator
[2019-08-26] MEDS: MIDAZOLAM 100 MG in SODIUM CHLORIDE 0.9% 80 ML IV PRN ×3 (05:05→20:06)
[2019-08-26] MEDS: METOCLOPRAMIDE 10 MG/2 ML VIAL IV SCH ×3 (05:44→18:21)
[2019-08-26] MEDS: FUROSEMIDE 40 MG/4 ML VIAL IV SCH ×3 (05:44→21:30)
[2019-08-26] MEDS: ASPIRIN CHEW 81 MG TABLET PO SCH (09:20)
[2019-08-26] MEDS: carvediloL 3.125 MG TABLET PO SCH ×2 (09:20→18:17)
[2019-08-26] MEDS: PANTOPRAZOLE 40 MG VIAL IV SCH (09:21)
[2019-08-26] MEDS: cefTRIAXone 1,000 MG in SYRINGE 1 EACH IV SCH (09:21)
[2019-08-26] MEDS: ENOXAPARIN 60 MG/0.6 ML SYRINGE SUBCUT SCH (13:48)
[2019-08-26] MEDS: MULTIVITAMIN LIQUID (CENTRUM) 60 ML BOTTLE PO SCH (13:49)
[2019-08-26] MEDS ORDERED: ACETAMINOPHEN 500 MG TABLET ONE (21:33)
[2019-08-26] MEDS ORDERED: ACETAMINOPHEN 500 MG TABLET PO ONE (21:53)
[2019-08-26] MEDS: IBUPROFEN 800 MG TABLET PO PRN (23:10)
[2019-08-27] MEDS: INSULIN REGULAR 100 UNIT/ML SUBCUT SCH ×4 (00:28→18:32)
[2019-08-27] MEDS: METOCLOPRAMIDE 10 MG/2 ML VIAL IV SCH ×4 (00:28→18:32)
[2019-08-27] MEDS: ALBUTEROL 2.5 MG/3 ML NEB RESP TX SCH ×5 (01:12→23:51)
[2019-08-27] MEDS: MIDAZOLAM 100 MG in SODIUM CHLORIDE 0.9% 80 ML IV PRN ×2 (02:12→09:00)
[2019-08-27] MEDS: methylPREDNISolone SOD SUC 40 MG/1 ML VIAL IV SCH ×2 (02:58→13:59)
[2019-08-27 04:33] LABS: Allen Test Positive; Pt O2 Delivery Device Ventilator
[2019-08-27 04:35] LABS: ABG Base Excess -0.8 MMOL/L (-2.5-2.5); ABG HCO3 25.4 MMOL/L (20-26); ABG Oxygen Saturation 92.5 % (95-100); ABG PCO2 47.9 MM HG (35-48); ABG PH 7.343 (7.35-7.45); ABG TCO2 26.9 MMOL/L (23-27)
[2019-08-27 06:08] LABS: Basophils % 0.2 % (0.0-0.8); Hematocrit 57.4 VOL% (42.0-52.0); Immature Granulocytes Absolute 0.23 #; Lymphocytes # 2.3 10*3/uL (1.4-4.0); Lymphocytes % 10.3 % (21.2-54.2); Mean Corpuscular HGB Conc 28.6 GM/DL (32-36); Monocytes % 15.1 % (1.7-12.7); Neutrophils % 73.4 % (38.7-73.9); Platelet Count 227 T/CUMM (130-400); Red Cell Distribution Width 21.2 % (9.3-17.3)
[2019-08-27 06:09] LABS: Red Blood Count 7.55 MC/CUMM (3.8-5.5); White Blood Count 22.8 T/CUMM (4-12)
[2019-08-27 06:10] LABS: Hemoglobin 16.4 GM/DL (14.0-18.0)
[2019-08-27] MEDS: FUROSEMIDE 40 MG/4 ML VIAL IV SCH ×3 (06:26→22:48)
[2019-08-27 06:53] LABS: Band Neutrophils 6 % (0-10); Lymphocytes 15 % (20-55); Segmented Neutrophils 65 % (50-85); Total Cells Counted 100
[2019-08-27 06:54] LABS: Atypical Lymphocytes Few; Hypochromasia 1+; Microcytosis 1+; Platelet Estimate Normal
[2019-08-27] MEDS ORDERED: MIDAZOLAM 10 MG/2 ML VIAL ONE (08:05)
[2019-08-27] MEDS: PANTOPRAZOLE 40 MG VIAL IV SCH (09:55)
[2019-08-27] MEDS: IBUPROFEN 800 MG TABLET PO PRN (09:55)
[2019-08-27] MEDS: carvediloL 3.125 MG TABLET PO SCH ×2 (09:56→18:32)
[2019-08-27] MEDS: cefTRIAXone 1,000 MG in SYRINGE 1 EACH IV SCH (09:56)
[2019-08-27] MEDS: ASPIRIN CHEW 81 MG TABLET PO SCH (09:56)
[2019-08-27] MEDS: MULTIVITAMIN LIQUID (CENTRUM) 60 ML BOTTLE PO SCH (10:05)
[2019-08-27] MEDS: ENOXAPARIN 60 MG/0.6 ML SYRINGE SUBCUT SCH (13:56)
[2019-08-27] MEDS: ACETAMINOPHEN 325 MG/10.15 ML UDCUP PO PRN (14:45)
[2019-08-28] MEDS: INSULIN REGULAR 100 UNIT/ML SUBCUT SCH ×4 (00:26→17:27)
[2019-08-28] MEDS: METOCLOPRAMIDE 10 MG/2 ML VIAL IV SCH ×4 (00:27→17:33)
[2019-08-28] MEDS: methylPREDNISolone SOD SUC 40 MG/1 ML VIAL IV SCH ×2 (02:35→15:55)
[2019-08-28 04:18] LABS: ABG Base Excess 3.5 MMOL/L (-2.5-2.5); ABG HCO3 27.5 MMOL/L (20-26); ABG Oxygen Saturation 98.8 % (95-100); ABG PH 7.333 (7.35-7.45); ABG TCO2 26.8 MMOL/L (23-27)
[2019-08-28 04:46] LABS: Calcium 8.9 MG/DL (8.5-10.1); Osmolality,Calculated 348.4 MOS/KG (273-304); Prealbumin 21.7 MG/DL (20-40)
[2019-08-28 05:22] LABS: Basophils % 0.1 % (0.0-0.8); Hemoglobin 16.1 GM/DL (14.0-18.0); Immature Granulocytes % 0.8 %; Immature Granulocytes Absolute 0.18 #; Lymphocytes # 1.5 10*3/uL (1.4-4.0); Lymphocytes % 6.9 % (21.2-54.2); Mean Corpuscular HGB Conc 28.2 GM/DL (32-36); Mean Corpuscular Volume 77.2 FL (87-102); Monocytes % 8.5 % (1.7-12.7); Neutrophils % 83.7 % (38.7-73.9); Platelet Count 208 T/CUMM (130-400); Red Blood Count 7.38 MC/CUMM (3.8-5.5); Red Cell Distribution Width 21.6 % (9.3-17.3); White Blood Count 21.5 T/CUMM (4-12)
[2019-08-28 05:32] LABS: Hypochromasia Slight; Microcytosis 1+; Platelet Estimate Adequate
[2019-08-28] MEDS: FUROSEMIDE 40 MG/4 ML VIAL IV SCH (06:12)
[2019-08-28] MEDS: ALBUTEROL 2.5 MG/3 ML NEB RESP TX SCH ×3 (07:10→19:24)
[2019-08-28] MEDS: IBUPROFEN 800 MG TABLET PO PRN (08:19)
[2019-08-28] MEDS: cefTRIAXone 1,000 MG in SYRINGE 1 EACH IV SCH (08:19)
[2019-08-28] MEDS: MULTIVITAMIN LIQUID (CENTRUM) 60 ML BOTTLE PO SCH (08:19)
[2019-08-28] MEDS: ASPIRIN CHEW 81 MG TABLET PO SCH (08:19)
[2019-08-28] MEDS: carvediloL 3.125 MG TABLET PO SCH ×2 (08:19→17:27)
[2019-08-28] MEDS ORDERED: OMEPRAZOLE ODT 20 MG TABLET PO SCH (09:00)
[2019-08-28] MEDS: PANTOPRAZOLE 40 MG VIAL IV SCH ×2 (12:37→20:58)
[2019-08-28] MEDS: LINEZOLID INJ 600 MG in PREMIX 1 EACH IV SCH (12:37)
[2019-08-28] MEDS: ENOXAPARIN 60 MG/0.6 ML SYRINGE SUBCUT SCH (15:55)
[2019-08-28] MEDS: ACETAMINOPHEN 325 MG/10.15 ML UDCUP PO PRN (18:10)
[2019-08-28] MEDS ORDERED: ACETAMINOPHEN 325 MG/10.15 ML UDCUP PO ONE ×2 (20:16→20:30)
[2019-08-29] MEDS: ALBUTEROL 2.5 MG/3 ML NEB RESP TX SCH ×4 (00:30→19:02)
[2019-08-29] MEDS: LINEZOLID INJ 600 MG in PREMIX 1 EACH IV SCH ×2 (00:56→11:58)
[2019-08-29] MEDS: METOCLOPRAMIDE 10 MG/2 ML VIAL IV SCH ×4 (00:56→17:45)
[2019-08-29] MEDS: INSULIN REGULAR 100 UNIT/ML SUBCUT SCH ×4 (00:57→17:45)
[2019-08-29] MEDS: methylPREDNISolone SOD SUC 40 MG/1 ML VIAL IV SCH ×2 (04:18→14:58)
[2019-08-29 04:58] LABS: Allen Test Positive; Pt O2 Delivery Device Ventilator
[2019-08-29 05:00] LABS: ABG Base Excess 2.9 MMOL/L (-2.5-2.5); ABG HCO3 26.9 MMOL/L (20-26); ABG Oxygen Saturation 95.3 % (95-100); ABG PCO2 60.5 MM HG (35-48); ABG PH 7.323 (7.35-7.45); ABG PO2 81.4 MM HG (80-95); ABG TCO2 26.7 MMOL/L (23-27)
[2019-08-29 08:22] LABS: Basophils % 0.1 % (0.0-0.8); Hematocrit 55.2 VOL% (42.0-52.0); Immature Granulocytes % 1.8 %; Lymphocytes # 1.3 10*3/uL (1.4-4.0); Lymphocytes % 5.9 % (21.2-54.2); Mean Corpuscular Volume 79.3 FL (87-102); Neutrophils % 87.2 % (38.7-73.9); Platelet Count 177 T/CUMM (130-400); Red Blood Count 6.96 MC/CUMM (3.8-5.5); Red Cell Distribution Width 21.3 % (9.3-17.3); White Blood Count 22.1 T/CUMM (4-12)
[2019-08-29 08:24] LABS: Hemoglobin 14.9 GM/DL (14.0-18.0)
[2019-08-29 08:27] LABS: Band Neutrophils 2 % (0-10); Lymphocytes 2 % (20-55); Nucleated Red Blood Cells 1 (0-5); Platelet Estimate Adequate; Segmented Neutrophils 93 % (50-85); Total Cells Counted 100
[2019-08-29 08:28] LABS: Microcytosis 1+
[2019-08-29] MEDS: ASPIRIN CHEW 81 MG TABLET PO SCH (08:43)
[2019-08-29] MEDS: MULTIVITAMIN LIQUID (CENTRUM) 60 ML BOTTLE PO SCH (08:43)
[2019-08-29] MEDS: cefTRIAXone 1,000 MG in SYRINGE 1 EACH IV SCH (08:43)
[2019-08-29] MEDS: FUROSEMIDE 40 MG/4 ML VIAL IV SCH (08:43)
[2019-08-29] MEDS: carvediloL 3.125 MG TABLET PO SCH ×2 (08:43→17:44)
[2019-08-29] MEDS: PANTOPRAZOLE 40 MG VIAL IV SCH ×2 (08:46→22:42)
[2019-08-29] MEDS: ACETAMINOPHEN 325 MG/10.15 ML UDCUP PO PRN ×2 (08:46→17:45)
[2019-08-29 08:51] LABS: Osmolality,Calculated 366.6 MOS/KG (273-304)
[2019-08-29] MEDS: SUCRALFATE 1 GM/10 ML UDCUP NG SCH ×2 (11:58→17:44)
[2019-08-29] MEDS: ENOXAPARIN 60 MG/0.6 ML SYRINGE SUBCUT SCH (14:58)
[2019-08-30] MEDS: SUCRALFATE 1 GM/10 ML UDCUP NG SCH ×4 (00:24→17:20)
[2019-08-30] MEDS: LINEZOLID INJ 600 MG in PREMIX 1 EACH IV SCH ×3 (00:24→23:48)
[2019-08-30] MEDS: METOCLOPRAMIDE 10 MG/2 ML VIAL IV SCH ×4 (00:24→17:20)
[2019-08-30] MEDS: ACETAMINOPHEN 325 MG/10.15 ML UDCUP PO PRN (00:25)
[2019-08-30] MEDS: INSULIN REGULAR 100 UNIT/ML SUBCUT SCH ×5 (00:30→23:49)
[2019-08-30] MEDS: ALBUTEROL 2.5 MG/3 ML NEB RESP TX SCH ×3 (00:43→16:09)
[2019-08-30] MEDS: methylPREDNISolone SOD SUC 40 MG/1 ML VIAL IV SCH ×2 (03:08→14:19)
[2019-08-30 04:33] LABS: Allen Test Positive; Pt O2 Delivery Device Ventilator
[2019-08-30 04:34] LABS: ABG Base Excess 2.1 MMOL/L (-2.5-2.5); ABG HCO3 29.9 MMOL/L (20-26); ABG Oxygen Saturation 88.5 % (95-100); ABG PH 7.316 (7.35-7.45); ABG PO2 59.1 MM HG (80-95); ABG TCO2 31.8 MMOL/L (23-27)
[2019-08-30 05:42] LABS: Calcium 9.3 MG/DL (8.5-10.1)
[2019-08-30 06:34] LABS: Basophils % 0.1 % (0.0-0.8); Hematocrit 54.1 VOL% (42.0-52.0); Immature Granulocytes % 1.2 %; Immature Granulocytes Absolute 0.27 #; Lymphocytes # 2.3 10*3/uL (1.4-4.0); Lymphocytes % 10.4 % (21.2-54.2); Mean Corpuscular HGB Conc 27.9 GM/DL (32-36); Mean Corpuscular Volume 77.6 FL (87-102); Monocytes % 7.3 % (1.7-12.7); Platelet Count 167 T/CUMM (130-400); Red Blood Count 6.97 MC/CUMM (3.8-5.5); Red Cell Distribution Width 21.4 % (9.3-17.3); White Blood Count 21.8 T/CUMM (4-12)
[2019-08-30 06:36] LABS: Hemoglobin 15.1 GM/DL (14.0-18.0)
[2019-08-30 06:53] LABS: Band Neutrophils 1 % (0-10); Lymphocytes 9 % (20-55); Platelet Estimate Adequate; Segmented Neutrophils 84 % (50-85); Total Cells Counted 100
[2019-08-30] MEDS: ASPIRIN CHEW 81 MG TABLET PO SCH (08:35)
[2019-08-30] MEDS: PANTOPRAZOLE 40 MG VIAL IV SCH ×2 (08:35→20:33)
[2019-08-30] MEDS: carvediloL 3.125 MG TABLET PO SCH ×2 (08:35→17:20)
[2019-08-30] MEDS: FUROSEMIDE 40 MG/4 ML VIAL IV SCH (08:36)
[2019-08-30] MEDS: cefTRIAXone 1,000 MG in SYRINGE 1 EACH IV SCH (08:36)
[2019-08-30] MEDS: MULTIVITAMIN LIQUID (CENTRUM) 60 ML BOTTLE PO SCH (08:37)
[2019-08-30] MEDS: DEXTROSE 5% 1,000 ML IV SCH ×2 (08:42→17:53)
[2019-08-30] MEDS: ENOXAPARIN 60 MG/0.6 ML SYRINGE SUBCUT SCH (13:40)
[2019-08-31] MEDS: METOCLOPRAMIDE 10 MG/2 ML VIAL IV SCH ×4 (01:07→18:07)
[2019-08-31] MEDS: SUCRALFATE 1 GM/10 ML UDCUP NG SCH ×4 (01:07→18:06)
[2019-08-31] MEDS: methylPREDNISolone SOD SUC 40 MG/1 ML VIAL IV SCH ×2 (01:07→12:15)
[2019-08-31] MEDS: DEXTROSE 5% 1,000 ML IV SCH ×2 (03:26→05:19)
[2019-08-31 03:46] LABS: Basophils % 0.2 % (0.0-0.8); Hematocrit 49.9 VOL% (42.0-52.0); Hemoglobin 13.9 GM/DL (14.0-18.0); Immature Granulocytes % 0.5 %; Immature Granulocytes Absolute 0.11 #; Lymphocytes # 1.8 10*3/uL (1.4-4.0); Lymphocytes % 7.9 % (21.2-54.2); Mean Corpuscular HGB Conc 27.9 GM/DL (32-36); Mean Corpuscular Volume 77.8 FL (87-102); Monocytes % 6.1 % (1.7-12.7); Neutrophils % 85.3 % (38.7-73.9); Red Blood Count 6.41 MC/CUMM (3.8-5.5); White Blood Count 22.4 T/CUMM (4-12)
[2019-08-31 03:47] LABS: Calcium 8.5 MG/DL (8.5-10.1)
[2019-08-31 03:48] LABS: Platelet Count 125 T/CUMM (130-400)
[2019-08-31 03:58] LABS: ABG HCO3 25.2 MMOL/L (20-26); ABG Oxygen Saturation 94.8 % (95-100); ABG PCO2 66.3 MM HG (35-48); ABG PO2 80.7 MM HG (80-95); ABG TCO2 26.6 MMOL/L (23-27); Allen Test Positive; Pt O2 Delivery Device Ventilator
[2019-08-31] MEDS: INSULIN REGULAR 100 UNIT/ML SUBCUT SCH ×6 (06:32→22:28)
[2019-08-31] MEDS: ASPIRIN CHEW 81 MG TABLET PO SCH (08:17)
[2019-08-31] MEDS: FUROSEMIDE 40 MG/4 ML VIAL IV SCH (08:17)
[2019-08-31] MEDS: carvediloL 3.125 MG TABLET PO SCH ×2 (08:17→18:07)
[2019-08-31] MEDS: PANTOPRAZOLE 40 MG VIAL IV SCH ×2 (08:18→20:37)
[2019-08-31] MEDS: MULTIVITAMIN LIQUID (CENTRUM) 60 ML BOTTLE PO SCH (08:19)
[2019-08-31] MEDS: cefTRIAXone 1,000 MG in SYRINGE 1 EACH IV SCH (08:19)
[2019-08-31] MEDS: ENOXAPARIN 60 MG/0.6 ML SYRINGE SUBCUT SCH (12:15)
[2019-08-31] MEDS: MEROPENEM 500 MG in SODIUM CHLORIDE 0.9% 100 ML IV SCH ×2 (12:24→20:37)
[2019-08-31] MEDS: LINEZOLID INJ 600 MG in PREMIX 1 EACH IV SCH ×2 (12:37→22:30)
[2019-08-31] MEDS ORDERED: methylPREDNISolone SOD SUC 40 MG/1 ML VIAL IV SCH (15:00)
[2019-08-31] MEDS: INSULIN GLARGINE 100 UNIT/ML SUBCUT SCH (15:55)
[2019-08-31 16:49] LABS: Calcium 9.1 MG/DL (8.5-10.1)
[2019-08-31] MEDS: DESITIN 4OZ/NYSTATIN 15 GRAM MIXTURE PASTE TOP SCH ×2 (16:49→20:55)
[2019-08-31] MEDS: ACETAMINOPHEN 325 MG/10.15 ML UDCUP PO PRN (18:17)
[2019-09-01] MEDS: INSULIN REGULAR 100 UNIT/ML SUBCUT SCH ×12 (00:18→22:26)
[2019-09-01] MEDS: methylPREDNISolone SOD SUC 40 MG/1 ML VIAL IV SCH ×3 (00:18→23:54)
[2019-09-01] MEDS: METOCLOPRAMIDE 10 MG/2 ML VIAL IV SCH ×5 (00:18→23:55)
[2019-09-01] MEDS: SUCRALFATE 1 GM/10 ML UDCUP NG SCH ×5 (00:18→23:56)
[2019-09-01] MEDS: MEROPENEM 500 MG in SODIUM CHLORIDE 0.9% 100 ML IV SCH ×3 (04:04→21:36)
[2019-09-01 04:34] LABS: ABG Base Excess 3.1 MMOL/L (-2.5-2.5); ABG HCO3 31.1 MMOL/L (20-26); ABG Oxygen Saturation 92.6 % (95-100); ABG PCO2 62.7 MM HG (35-48); ABG PH 7.313 (7.35-7.45); ABG PO2 70.1 MM HG (80-95); Allen Test Positive; Pt O2 Delivery Device Ventilator
[2019-09-01 05:17] LABS: Basophils % 0.2 % (0.0-0.8); Eosinophils % 0.1 % (0.00-10.9); Immature Granulocytes % 1.1 %; Immature Granulocytes Absolute 0.29 #; Lymphocytes # 1.3 10*3/uL (1.4-4.0); Mean Corpuscular HGB Conc 27.3 GM/DL (32-36); Mean Corpuscular Volume 79.7 FL (87-102); Monocytes % 4.7 % (1.7-12.7); Neutrophils % 88.9 % (38.7-73.9); Platelet Count 121 T/CUMM (130-400); Red Cell Distribution Width 20.6 % (9.3-17.3); White Blood Count 26.2 T/CUMM (4-12)
[2019-09-01 05:38] LABS: Calcium 8.9 MG/DL (8.5-10.1); Osmolality,Calculated 363.4 MOS/KG (273-304)
[2019-09-01 05:40] LABS: Hematocrit 48.7 VOL% (42.0-52.0); Hemoglobin 13.5 GM/DL (14.0-18.0)
[2019-09-01 05:47] LABS: Hypochromasia 1+; Lymphocytes 6 % (20-55); Platelet Estimate Adequate; Segmented Neutrophils 89 % (50-85); Total Cells Counted 100
[2019-09-01] MEDS: INSULIN GLARGINE 100 UNIT/ML SUBCUT SCH ×2 (08:37→21:39)
[2019-09-01] MEDS: PANTOPRAZOLE 40 MG VIAL IV SCH ×2 (08:38→21:36)
[2019-09-01] MEDS: ASPIRIN CHEW 81 MG TABLET PO SCH (08:39)
[2019-09-01] MEDS: FUROSEMIDE 40 MG/4 ML VIAL IV SCH (08:39)
[2019-09-01] MEDS: carvediloL 3.125 MG TABLET PO SCH ×2 (08:39→17:29)
[2019-09-01] MEDS: DESITIN 4OZ/NYSTATIN 15 GRAM MIXTURE PASTE TOP SCH ×2 (08:40→21:40)
[2019-09-01] MEDS: VECURONIUM 10 MG VIAL IV PRN (10:36)
[2019-09-01] MEDS: ENOXAPARIN 60 MG/0.6 ML SYRINGE SUBCUT SCH (13:06)
[2019-09-01] MEDS: LINEZOLID INJ 600 MG in PREMIX 1 EACH IV SCH ×2 (13:08→22:47)
[2019-09-01] MEDS ORDERED: INSULIN LISPRO 100 UNIT/ML SUBCUT SCH (16:30)
[2019-09-01] MEDS: INSULIN LISPRO 100 UNIT/ML SUBCUT SCH ×2 (17:00→21:34)
[2019-09-02] MEDS: INSULIN REGULAR 100 UNIT/ML SUBCUT SCH ×9 (00:53→20:06)
[2019-09-02] MEDS: MEROPENEM 500 MG in SODIUM CHLORIDE 0.9% 100 ML IV SCH ×3 (03:44→20:05)
[2019-09-02] MEDS: INSULIN LISPRO 100 UNIT/ML SUBCUT SCH ×4 (03:45→21:30)
[2019-09-02 04:25] LABS: Calcium 9.1 MG/DL (8.5-10.1)
[2019-09-02 04:46] LABS: ABG Base Excess 3.6 MMOL/L (-2.5-2.5); ABG HCO3 27.5 MMOL/L (20-26); ABG Oxygen Saturation 91.2 % (95-100); ABG PCO2 58.8 MM HG (35-48); ABG PH 7.334 (7.35-7.45); ABG PO2 63.8 MM HG (80-95); ABG TCO2 27.7 MMOL/L (23-27); Allen Test Positive; Pt O2 Delivery Device Ventilator
[2019-09-02 04:56] LABS: Basophils % 0.1 % (0.0-0.8); Eosinophils # 0.3 10*3/uL (0.0-0.87); Eosinophils % 1.6 % (0.00-10.9); Hematocrit 45.2 VOL% (42.0-52.0); Hemoglobin 12.3 GM/DL (14.0-18.0); Immature Granulocytes % 5.4 %; Immature Granulocytes Absolute 1.11 #; Lymphocytes # 1.1 10*3/uL (1.4-4.0); Lymphocytes % 5.5 % (21.2-54.2); Mean Corpuscular HGB Conc 27.2 GM/DL (32-36); Mean Corpuscular Volume 78.9 FL (87-102); Monocytes % 4.8 % (1.7-12.7); NRBC # 0.06 10*3/uL; Neutrophils % 82.6 % (38.7-73.9); Platelet Count 103 T/CUMM (130-400); Red Blood Count 5.73 MC/CUMM (3.8-5.5); Red Cell Distribution Width 20.3 % (9.3-17.3); White Blood Count 20.4 T/CUMM (4-12)
[2019-09-02 05:51] LABS: Anisocytosis 1+; Band Neutrophils 1 % (0-10); Eosinophils 2 % (0-10); Hypochromasia 1+; Lymphocytes 7 % (20-55); Platelet Estimate Decreased; Segmented Neutrophils 87 % (50-85); Total Cells Counted 100
[2019-09-02] MEDS: METOCLOPRAMIDE 10 MG/2 ML VIAL IV SCH ×3 (06:20→17:42)
[2019-09-02] MEDS: SUCRALFATE 1 GM/10 ML UDCUP NG SCH ×3 (06:21→17:42)
[2019-09-02] MEDS: VECURONIUM 10 MG VIAL IV PRN ×3 (06:50→21:44)
[2019-09-02] MEDS: carvediloL 3.125 MG TABLET PO SCH ×2 (09:34→17:44)
[2019-09-02] MEDS: PANTOPRAZOLE 40 MG VIAL IV SCH ×2 (09:34→20:06)
[2019-09-02] MEDS: ASPIRIN CHEW 81 MG TABLET PO SCH (09:34)
[2019-09-02] MEDS: INSULIN GLARGINE 100 UNIT/ML SUBCUT SCH ×2 (09:35→20:05)
[2019-09-02] MEDS: DESITIN 4OZ/NYSTATIN 15 GRAM MIXTURE PASTE TOP SCH ×2 (09:36→21:01)
[2019-09-02] MEDS: FUROSEMIDE 40 MG/4 ML VIAL IV SCH (09:36)
[2019-09-02] MEDS: methylPREDNISolone SOD SUC 40 MG/1 ML VIAL IV SCH (11:47)
[2019-09-02] MEDS: ENOXAPARIN 60 MG/0.6 ML SYRINGE SUBCUT SCH (12:04)
[2019-09-02] MEDS: LINEZOLID INJ 600 MG in PREMIX 1 EACH IV SCH (13:44)
[2019-09-02] MEDS ORDERED: INSULIN LISPRO 100 UNIT/ML SUBCUT SCH (14:45)
[2019-09-02 15:28] LABS: Apearance,Urine Slightly Hazy (Clear); Bacteria,Urine Occasional /HPF (Few); Bilirubin,Urine Negative (Negative); Blood, Urine Large mg/dL (Negative); Glucose,Urine (UA) Negative (Negative); Ketones,Urine Negative (Negative); Mucus,Urine Occasional /LPF (Occasional); Nitrite,Urine Negative (Negative); Protein,Urine 30 MG/DL; RBC,Urine 1121 /HPF (0-4); Squamous Epithelial Cell,Urine Occasional /HPF (0-10); Urine Color Yellow (Yellow); Urine Specific Gravity 1.019 (1.001-1.035); Urine Urobilinogen < 2.0 EU/DL (0.2-1.0); WBC,Urine 7 /HPF (0-6)
[2019-09-02 16:29] LABS: ABG Base Excess 4.2 MMOL/L (-2.5-2.5); ABG Oxygen Saturation 87.6 % (95-100); ABG PCO2 56.6 MM HG (35-48); ABG PH 7.353 (7.35-7.45); ABG PO2 55.1 MM HG (80-95); ABG TCO2 27.8 MMOL/L (23-27); Allen Test Positive; Pt O2 Delivery Device Ventilator
[2019-09-02] MEDS: MIDAZOLAM 100 MG in SODIUM CHLORIDE 0.9% 80 ML IV PRN (17:41)
[2019-09-02] MEDS: fentaNYL INJ 1,250 MCG in SODIUM CHLORIDE 0.9% 225 ML IV PRN ×2 (17:42→23:14)
[2019-09-02] MEDS ORDERED: NOREPINEPHRINE 4 MG/4 ML VIAL IV ONE (20:47)
[2019-09-02] MEDS: NOREPINEPHRINE 8 MG in SODIUM CHLORIDE 0.9% 242 ML IV PRN (20:54)
[2019-09-02] MEDS: ACETAMINOPHEN 325 MG/10.15 ML UDCUP PO PRN (21:11)
[2019-09-03] MEDS: LINEZOLID INJ 600 MG in PREMIX 1 EACH IV SCH ×2 (01:44→12:47)
[2019-09-03] MEDS: INSULIN REGULAR 100 UNIT/ML SUBCUT SCH ×6 (01:44→20:58)
[2019-09-03] MEDS: METOCLOPRAMIDE 10 MG/2 ML VIAL IV SCH ×4 (01:45→17:28)
[2019-09-03] MEDS: methylPREDNISolone SOD SUC 40 MG/1 ML VIAL IV SCH ×2 (01:45→12:48)
[2019-09-03] MEDS: SUCRALFATE 1 GM/10 ML UDCUP NG SCH ×4 (01:46→17:28)
[2019-09-03] MEDS: fentaNYL INJ 1,250 MCG in SODIUM CHLORIDE 0.9% 225 ML IV PRN ×4 (04:06→23:46)
[2019-09-03] MEDS: VECURONIUM 10 MG VIAL IV PRN ×3 (04:40→20:56)
[2019-09-03 05:01] LABS: ABG Base Excess 4.7 MMOL/L (-2.5-2.5); ABG HCO3 28.3 MMOL/L (20-26); ABG Oxygen Saturation 79.1 % (95-100); ABG PCO2 49.7 MM HG (35-48); ABG PH 7.398 (7.35-7.45); ABG PO2 43.5 MM HG (80-95); ABG TCO2 27.4 MMOL/L (23-27)
[2019-09-03] MEDS: MIDAZOLAM 100 MG in SODIUM CHLORIDE 0.9% 80 ML IV PRN ×3 (05:58→21:26)
[2019-09-03 06:02] LABS: Calcium 8.7 MG/DL (8.5-10.1); Osmolality,Calculated 338.7 MOS/KG (273-304)
[2019-09-03 07:00] LABS: Basophils # 0.2 10*3/uL (0.0-0.2); Basophils % 0.8 % (0.0-0.8); Eosinophils # 0.1 10*3/uL (0.0-0.87); Eosinophils % 0.7 % (0.00-10.9); Hematocrit 40.9 VOL% (42.0-52.0); Hemoglobin 11.6 GM/DL (14.0-18.0); Immature Granulocytes % 8.2 %; Immature Granulocytes Absolute 1.57 #; Lymphocytes # 1.3 10*3/uL (1.4-4.0); Lymphocytes % 6.6 % (21.2-54.2); Mean Corpuscular HGB Conc 28.4 GM/DL (32-36); Mean Corpuscular Volume 76.6 FL (87-102); Monocytes % 4.6 % (1.7-12.7); NRBC # 0.38 10*3/uL; Neutrophils % 79.1 % (38.7-73.9); Platelet Count 147 T/CUMM (130-400); Red Blood Count 5.34 MC/CUMM (3.8-5.5); White Blood Count 19.1 T/CUMM (4-12)
[2019-09-03] MEDS: INSULIN LISPRO 100 UNIT/ML SUBCUT SCH ×4 (07:57→21:31)
[2019-09-03 08:16] LABS: Band Neutrophils 4 % (0-10); Hypochromasia 2+; Lymphocytes 4 % (20-55); Microcytosis 2+; Nucleated Red Blood Cells 2 (0-5); Platelet Estimate Adequate; Polychromasia Slight; Segmented Neutrophils 89 % (50-85); Total Cells Counted 100
[2019-09-03] MEDS: MEROPENEM 500 MG in SODIUM CHLORIDE 0.9% 100 ML IV SCH ×2 (09:35→16:02)
[2019-09-03 11:14] LABS: ABG Base Excess 5.4 MMOL/L (-2.5-2.5); ABG HCO3 31.2 MMOL/L (20-26); ABG Oxygen Saturation 86.5 % (95-100); ABG PCO2 51.1 MM HG (35-48); ABG PH 7.404 (7.35-7.45); ABG PO2 51.8 MM HG (80-95); ABG TCO2 32.8 MMOL/L (23-27)
[2019-09-03] MEDS: carvediloL 3.125 MG TABLET PO SCH ×2 (12:45→16:02)
[2019-09-03] MEDS: ASPIRIN CHEW 81 MG TABLET PO SCH (12:46)
[2019-09-03] MEDS: INSULIN GLARGINE 100 UNIT/ML SUBCUT SCH ×2 (12:46→20:58)
[2019-09-03] MEDS: DESITIN 4OZ/NYSTATIN 15 GRAM MIXTURE PASTE TOP SCH ×2 (12:47→20:59)
[2019-09-03] MEDS: FUROSEMIDE 40 MG/4 ML VIAL IV SCH (12:47)
[2019-09-03] MEDS: PANTOPRAZOLE 40 MG VIAL IV SCH ×2 (12:47→20:57)
[2019-09-03] MEDS: ENOXAPARIN 60 MG/0.6 ML SYRINGE SUBCUT SCH (12:48)
[2019-09-03] MEDS: ACETAMINOPHEN 325 MG/10.15 ML UDCUP PO PRN (21:08)
[2019-09-03] MEDS: fentaNYL INJ 2,500 MCG in SODIUM CHLORIDE 0.9% 450 ML IV PRN (23:46)
[2019-09-04] MEDS: MEROPENEM 500 MG in SODIUM CHLORIDE 0.9% 100 ML IV SCH ×4 (01:05→23:19)
[2019-09-04] MEDS: SUCRALFATE 1 GM/10 ML UDCUP NG SCH ×5 (01:06→23:16)
[2019-09-04] MEDS: LINEZOLID INJ 600 MG in PREMIX 1 EACH IV SCH ×3 (01:06→23:15)
[2019-09-04] MEDS: METOCLOPRAMIDE 10 MG/2 ML VIAL IV SCH ×5 (01:07→23:17)
[2019-09-04] MEDS: methylPREDNISolone SOD SUC 40 MG/1 ML VIAL IV SCH ×3 (01:07→17:44)
[2019-09-04] MEDS: INSULIN REGULAR 100 UNIT/ML SUBCUT SCH ×6 (01:12→22:24)
[2019-09-04] MEDS: VECURONIUM 10 MG VIAL IV PRN ×2 (01:32→12:27)
[2019-09-04] MEDS: ACETAMINOPHEN 325 MG/10.15 ML UDCUP PO PRN ×3 (01:56→17:43)
[2019-09-04] MEDS: fentaNYL INJ 1,250 MCG in SODIUM CHLORIDE 0.9% 225 ML IV PRN (02:18)
[2019-09-04] MEDS: NOREPINEPHRINE 8 MG in SODIUM CHLORIDE 0.9% 242 ML IV PRN (03:42)
[2019-09-04] MEDS: CISATRACURIUM 200 MG in SODIUM CHLORIDE 0.9% 180 ML IV SCH ×2 (03:59→17:48)
[2019-09-04] MEDS: fentaNYL INJ 2,500 MCG in SODIUM CHLORIDE 0.9% 450 ML IV PRN ×4 (04:00→22:48)
[2019-09-04 04:49] LABS: Calcium 8.6 MG/DL (8.5-10.1); Osmolality,Calculated 345.3 MOS/KG (273-304)
[2019-09-04 04:54] LABS: Prealbumin 15.5 MG/DL (20-40)
[2019-09-04 05:06] LABS: ABG Base Excess 3.1 MMOL/L (-2.5-2.5); ABG HCO3 26.7 MMOL/L (20-26); ABG PCO2 61.7 MM HG (35-48); ABG PO2 42.3 MM HG (80-95); ABG TCO2 28.2 MMOL/L (23-27); Allen Test Positive; Pt O2 Delivery Device Ventilator
[2019-09-04] MEDS: INSULIN LISPRO 100 UNIT/ML SUBCUT SCH ×4 (05:20→22:23)
[2019-09-04 05:42] VITALS: BP 127/52
[2019-09-04] MEDS: INSULIN GLARGINE 100 UNIT/ML SUBCUT SCH ×2 (09:15→22:24)
[2019-09-04] MEDS: PANTOPRAZOLE 40 MG VIAL IV SCH ×2 (09:15→22:22)
[2019-09-04] MEDS: FUROSEMIDE 40 MG/4 ML VIAL IV SCH (09:15)
[2019-09-04] MEDS: ASPIRIN CHEW 81 MG TABLET PO SCH (09:16)
[2019-09-04] MEDS: carvediloL 3.125 MG TABLET PO SCH ×2 (09:16→17:44)
[2019-09-04] MEDS: MIDAZOLAM 100 MG in SODIUM CHLORIDE 0.9% 80 ML IV PRN ×2 (09:45→22:50)
[2019-09-04] MEDS: DESITIN 4OZ/NYSTATIN 15 GRAM MIXTURE PASTE TOP SCH ×2 (10:22→22:26)
[2019-09-04] MEDS: ENOXAPARIN 60 MG/0.6 ML SYRINGE SUBCUT SCH (12:06)
[2019-09-05] MEDS: INSULIN REGULAR 100 UNIT/ML SUBCUT SCH ×2 (00:09→04:18)
[2019-09-05 03:17] LABS: ABG Base Excess 1.6 MMOL/L (-2.5-2.5); ABG HCO3 30.3 MMOL/L (20-26); ABG Oxygen Saturation 74.1 % (95-100); ABG PCO2 68.2 MM HG (35-48); ABG PH 7.265 (7.35-7.45); ABG PO2 42.1 MM HG (80-95); ABG TCO2 32.4 MMOL/L (23-27); Pt O2 Delivery Device Ventilator
[2019-09-05] MEDS ORDERED: methylPREDNISolone SOD SUC 40 MG/1 ML VIAL IV SCH ×3 (04:00→05:00)
[2019-09-05] MEDS: INSULIN LISPRO 100 UNIT/ML SUBCUT SCH (04:18)
[2019-09-05] MEDS: methylPREDNISolone SOD SUC 40 MG/1 ML VIAL IV SCH (04:21)
[2019-09-05 04:55] LABS: Calcium 8.8 MG/DL (8.5-10.1); Osmolality,Calculated 337.6 MOS/KG (273-304)
[2019-09-05 05:09] LABS: Basophils # 0.1 10*3/uL (0.0-0.2); Basophils % 0.7 % (0.0-0.8); Eosinophils % 0.1 % (0.00-10.9); Hematocrit 45.8 VOL% (42.0-52.0); Hemoglobin 12.1 GM/DL (14.0-18.0); Immature Granulocytes % 5.7 %; Immature Granulocytes Absolute 1.21 #; Lymphocytes # 2.3 10*3/uL (1.4-4.0); Lymphocytes % 10.8 % (21.2-54.2); Mean Corpuscular HGB Conc 26.4 GM/DL (32-36); Mean Corpuscular Volume 82.5 FL (87-102); Monocytes % 3.6 % (1.7-12.7); Neutrophils % 79.1 % (38.7-73.9); Platelet Count 168 T/CUMM (130-400); Red Blood Count 5.55 MC/CUMM (3.8-5.5); Red Cell Distribution Width 21.3 % (9.3-17.3); White Blood Count 21.3 T/CUMM (4-12)
[2019-09-05 05:22] LABS: Band Neutrophils 6 % (0-10); Hypochromasia 1+; Lymphocytes 10 % (20-55); Nucleated Red Blood Cells 6 (0-5); Platelet Estimate Adequate; Polychromasia Slight; Segmented Neutrophils 82 % (50-85); Total Cells Counted 100
[2019-09-05 05:23] LABS: Macrocytosis Slight
[2019-09-05] MEDS: METOCLOPRAMIDE 10 MG/2 ML VIAL IV SCH (05:30)
[2019-09-05] MEDS: SUCRALFATE 1 GM/10 ML UDCUP NG SCH (05:30)
[2019-09-05] MEDS ORDERED: SODIUM BICARBONATE 50 MEQ/50 ML SYRINGE IV ONE (07:28)
[2019-09-05] MEDS ORDERED: EPINEPHrine 1 MG/10 ML SYRINGE ONE ×2 (07:28→08:59)
== END 2019-09-05 08:16 | disposition expired | DRG 207 ==
LOC: N.ED 16:13 → SUATTDRO 19:50 → N.EDINP 19:50 → N.3E 22:10 → N.CC 08-16 17:39
PROVIDERS: ADMIT Internal Medicine; ATTEND Internal Medicine